=== PATIENT | female | born 1945 ===

== ENCOUNTER 2018-04-30 07:41 | Day surgery (SDC) | payer MEDICARE ==
[2018-04-29 10:23] VITALS: BMI 37.8
[2018-04-30 08:44] LABS: BASO # 0.04 K/mm3 (0.0-2.0); BASO % 0.6 % (0.0-3.0); EOS # 0.2 (0.0-0.7); EOS % 2.4 % (1.5-5.0); GRAN # 2.74 (1.4-6.5); GRAN % 43.9 % (50.0-68.0); HEMOGLOBIN 12.1 g/dL (12.0-16.0); LYMPH # 2.9 (1.2-3.4); MEAN CELL VOLUME 81.6 fl (80.0-105.0); MEAN CORPUSCULAR HEMOGLOBIN 26.2 pg (25.0-35.0); MEAN CORPUSCULAR HGB CONC 32.2 g/dl (31.0-37.0); MEAN PLATELET VOLUME 10.3 fl (7.0-11.0); MONO # 0.4 (0.1-0.6); MONO % 6.1 % (1.0-6.0); RBC 4.61 10^6/uL (3.5-6.1); RED CELL DISTRIBUTION WIDTH 15.4 % (11.5-14.5); WHITE BLOOD COUNT 6.2 10^3/ul (4.5-11.0)
[2018-04-30 08:51] LABS: PROTHROMBIN TIME 11.5 SECONDS (9.4-12.5)
[2018-04-30 08:54] LABS: BLOOD UREA NITROGEN 14 mg/dL (7-21); CALCIUM 9.5 mg/dL (8.4-10.5); GFR AFRICAN-AMERICAN > 60; GFR NON-AFRICAN AMERICAN > 60; PARTIAL THROMBOPLASTIN TIME 28.2 Seconds (25.1-36.5)
[2018-04-30] MEDS ORDERED: Iodixanol 320 MG/ML 200 ML BOTTLE IV ONE (11:16)
[2018-04-30] MEDS ORDERED: Nitroglycerin 50mg in D5W 50 MG/250 ML BOTTLE IV ONE (11:16)
[2018-04-30] MEDS ORDERED: Iohexol 350mgl/ml 50 ML ONE (11:16)
[2018-04-30] MEDS ORDERED: Verapamil 2 ML ONE (11:16)
[2018-04-30] MEDS ORDERED: Midazolam 2 MG/2 ML VIAL ONE ×3 (11:38→11:56)
[2018-04-30] MEDS ORDERED: Sodium Chloride 0.9% 1,000 ML IV SCH (12:45)
--- NOTE | 2018-04-30 15:12 | CARD ---
APPROVED REPORT Date of service: 04/30/2018 EKG Measurement Heart [id number] [id number] <Conclusion> Normal sinus rhythm Possible Inferior infarct, age undetermined T wave abnormality, consider lateral ischemia Abnormal ECG
[2018-04-30 15:45] VITALS: O2SAT 98
--- NOTE | 2018-04-30 17:08 | CARDCATH ---
Copied To: Alexey Maldonado MD Attending MD: Alexey Maldonado MD PROCEDURE DATE: 04/30/2018 INDICATIONS: Sally Light is a 73-year-old female with past medical history significant for hypertension, diabetes mellitus, hyperlipidemia, CAD status post stenting of LAD and obtuse marginal branch who underwent a nuclear stress test for preoperative cardiovascular risk stratification prior to an ankle surgery. She was brought to the slab lifting engineer for further evaluation and treatment. PROCEDURES PERFORMED: Left heart catheterization with selective left and right coronary angiograms, left ventriculogram, 6-Kenyan right femoral arterial access, and AngioSeal closure device for hemostasis. TECHNIQUES OF PROCEDURE: After obtaining informed consent, the patient was brought to the cardiac catheterization suite in post-absorptive and non-sedated state. The patient was prepped and draped in the usual sterile fashion. A 2% lidocaine was used for infiltration of anesthesia. Using modified Seldinger technique, a 6-Kenyan sheath was introduced into the right femoral artery. Subsequently over a J-wire, JL4 and JR4 diagnostic catheters were used to engage the left and right coronary systems and angiograms were obtained in different orthogonal views. Subsequently, an LV gram was obtained with angled pigtail catheter across the aortic valve. Hemodynamics were obtained and pullback gradients were noted. HEMODYNAMICS: Left ventricular end-diastolic pressure was 15 mmHg. There was no gradient noted upon the aortic valve pullback. There was no AI, no MR. Left ventricular ejection fraction estimated to be 60% to 65%. CORONARY ANATOMY: Left main is a large sized vessel, it bifurcates into LAD and left circumflex. Left main is free of any significant disease, 0% stenosis. LAD proximal 30% stenosis, stent in the proximal LAD is patent with 0% stenosis, mid LAD 0%, distal LAD 0%, diagonal 30%, left circumflex proximal 20%, mid 50% and distal 70% stenosis. Obtuse marginal stent patent with 0% stenosis. RCA proximal 20, mid 20, distal 20. PDA nonobstructive left ventricular ejection fraction normal at 60%-65%. IMPRESSION: Moderate left circumflex disease. RECOMMENDATIONS: The patient can proceed with planned surgery with low risk for cardiac event. Continue the patient on guideline-directed therapy for CAD. The patient is to follow up with her software build engineer, Dr. Sergio Davis. Since the patient was clinically asymptomatic and left circumflex stenosis was moderate, it was deemed to treat the patient medically with no intervention at this point in time. Alexey Maldonado MD cc: Sergio Davis MD
[2018-04-30 19:24] VITALS: BP 154/72; PULSE 66; RESP 18; TEMP 98
== END 2018-04-30 19:30 | disposition home or self-care (01) ==
LOC: CATH 07:41
PROVIDERS: ATTEND Internal Medicine Interventional Cardiology
DX: I25.10 Atherosclerotic heart disease of native coronary artery without angina pectoris (principal); E78.5 Hyperlipidemia, unspecified; E11.9 Type 2 diabetes mellitus without complications; I10 Essential (primary) hypertension; Z95.5 Presence of coronary angioplasty implant and graft
CPT/HCPCS: 36415; 80048; 83036; 85025; 85610; 85730; 93005; 93458; 99152; 99153; C1769; C1894 ×2; J1644 ×2; J2250; J3010; J7030; Q9966